=== PATIENT | male | born 1970 | race Hispanic/Latino ===

== ENCOUNTER 2024-01-26 16:06 | Emergency (ER) | payer MEDICAID ==
[~2024-01-26] VITALS: Ht 160 cm; Wt 181.0 kg
[~2024-01-26 16:06] MED LIST: ASPI-1005 PO; ATOR40TA69 PO; CLOP-31 PO; FAMO20TA8 PO; GLIP10TA16 PO; INSLAN SQ; LISI20TA24 PO; SEMA1PEN3 SQ
--- NOTE | 2024-01-26 17:06 | ERN ---
ED Note History of Present Illness Stated Complaint: FEVER Chief Complaint: Fever Time Seen by MD: 16:48 Dictation: PATIENT IS A 53-YEAR-OLD MALE HERE WITH COMPLAINTS OF FLU-LIKE SYMPTOMS TO INCLUDE FEVER CHILLS CLEAR RUNNY NOSE WITH MILD SORE THROAT AND PAINFUL SWALLOWING. HE STATES HE HAS ALSO HAD AN INTERMITTENT COUGH PHLEGM IS CLEAR. DENIES NAUSEA VOMITING DIARRHEA NO LOSS OF TASTE OR SMELL IN HIS VACCINATED FOR COVID. STATES HE HAS ALSO BEEN HAVING URINARY FREQUENCY MORE OFTEN LATELY SAW HIS PRIMARY CARE DOCTOR LAST WEEK AND WAS GIVEN A SHOT FOR A COLD AND THEN TOLD TO COME BACK TO THE GO TO THE EMERGENCY ROOM IF IT GOT WORSE. Allergies: Coded Allergies: No Known Drug Allergies (Unverified Allergy, Unknown, 05/14/22) Home Meds Active Scripts Semaglutide (Ozempic) 1 Mg/0.75 Ml Pen.injctr, 0.25 MG SQ QWEEK for DIABETES MELLITUS/MORBID OBESI for 30 Days, #30 DAYS 6 Refills Inject 0 0.25 mg subcutaneously once weekly for 4 weeks then increase dose to 0.5 mg subcu weekly. Prov:OLI VARGAS Jr., MD 05/16/22 Insulin Glargine,Hum.rec.anlog (Lantus) 100 Units/Ml Inj, 15 UNITS SQ BID@0730,2100 for DIABETES MELLITUS for 30 Days, #30 DAYS 6 Refills Inject 15 units subcutaneously twice daily. Alternate sites of injection. Prov:OLI VARGAS Jr., MD 05/16/22 Famotidine (Famotidine) 20 Mg Tablet, 20 MG PO BID for 30 Days, #60 TAB 1 Refill Take 1 tablet orally twice daily Prov:OLI VARGAS Jr., MD 05/16/22 Clopidogrel Bisulfate (Plavix) 75 Mg Tablet, 75 MG PO DAILY for SECONDARY STROKE PROPHYLAXIS for 90 Days, #90 TAB 1 Refill Take 1 tablet orally daily Prov:OLI VARGAS Jr., MD 05/16/22 Atorvastatin Calcium (LIPITOR) 40 Mg Tablet, 40 MG PO HS for DYSLIPIDEMIA/STROKE PROPHYLAXI for 90 Days, #90 TAB 1 Refill Take 1 tablet orally daily Prov:OLI VARGAS Jr., MD 05/16/22 Aspirin (ASPIRIN 81MG CHEW TAB) 81 Mg Tab.chew, 81 MG PO DAILY for SECONDARY PROPHYLAXIS STROKE for 21 Days, #21 TAB.CHEW 0 Refills Take 1 tablet orally daily for 21 days then stop. Prov:OLI VARGAS Jr., MD 05/16/22 Glipizide (Glipizide) 10 Mg Tablet, 1 TAB PO BID for DIABETES MELLITUS for 30 Days, #60 TAB 1 Refill Take 1 tablet orally twice daily Prov:OLI VARGAS Jr., MD 05/16/22 Lisinopril (Lisinopril) 20 Mg Tablet, 1 TAB PO BID for HYPERTENSION for 30 Days, #60 TAB 1 Refill Take 1 tablet orally twice daily Prov:OLI VARGAS Jr., MD 05/16/22 Past Medical History Past Medical History: Diabetes-Type II, Heart Disease, Hypertension Additional Past Medical Hx: OBESITY Surgical History: Other Surgical History Other: RIGHT KNEE PSYCH History: no pertinent psych hx RN Note Reviewed/Agreed w/PFSH: Yes Review of System Dictation CONSTITUTIONAL: NEGATIVE EXCEPT FOR HPI HEAD/FACE: NEGATIVE EXCEPT FOR HPI EENT: NEGATIVE EXCEPT FOR HPI FEVER CHILLS CLEAR RHINITIS WITH SORE THROAT RESPIRATORY: NEGATIVE EXCEPT FOR HPI INTERMITTENT DRY COUGH GASTROINTESTINAL/ABDOMINAL: NEGATIVE EXCEPT FOR HPI GENITOURINARY: NEGATIVE EXCEPT FOR HPI URINARY FREQUENCY MUSCULOSKELETAL: NEGATIVE EXCEPT FOR HPI INTEGUMENTARY: NEGATIVE EXCEPT FOR HPI NEUROLOGICAL/PSYCH: NEGATIVE EXCEPT FOR HPI HEMATOLOGIC/LYMPHATIC: NEGATIVE EXCEPT FOR HPI ALL SYSTEMS NEGATIVE, EXCEPT NOTED ABOVE. 13 POINT REVIEW OF SYSTEMS ASSESSED AND ALL NEGATIVE EXCEPT FOR ABOVE. Initial Vital Sign VS Vital Signs Date Time Temp Pulse Resp B/P (MAP) Pulse Ox O2 Delivery O2 Flow Rate FiO2 01/26/24 16:07 99.7 98 20 118/54 93 Room Air 01/26/24 17:18 0 21 Physical Exam Dictation VITAL SIGNS REVIEWED GENERAL APPEARANCE: ALERT, ORIENTED X 3, NO ACUTE DISTRESS, WELL DEVELOPED, NOURISHED. MORBID OBESITY HEAD AND FACE: NON-TRAUMATIC. EYES: PERRL, PINK CONJUNCTIVAS, EYELID NO TRAUMA, ANTERIOR CHAMBER WITH ARCUS SENILIS. EARS: PINNAS INTACT AND NO SIGNS OF TRAUMA OR ERYTHEMA EAR CANALS CLEAR AND NO DISCHARGE TM NO ERYTHEMA NOSE: CLEAR DISCHARGE, NO BLEEDING. OROPHARYNX: MOUTH NORMAL, TONGUE PINK, PHARYNX CLEAR, MILD PHARYNGEAL ERYTHEMA, TONSILS NO EXUDATES, NO ABSCESSES NOTE D, MUCOUS MEMBRANE MOIST UVULA MIDLINE VOICE IS CLEAR NO SOME TONSILLAR LYMPHADENOPATHY. NECK: SUPPLE, NON-TENDER, NO THYROMEGALY, NO MASSES, NO JVD, NO BRUITS BREAST:DEFERRED CHEST:NO TENDERNESS, NO CREPITUS, NO PARADOXICAL MOVEMENT, NO RETRACTIONS LUNGS:CLEAR, WELL-VENTILATED, SYMMETRIC, NO RALES, NO WHEEZING, NO RHONCHI, NO STRIDOR, GOOD BREATH SOUNDS BILATERALLY HEART: REGULAR RATE, REGULAR RHYTHM, NO MURMUR, NO GALLOPS VASCULAR: NO PERIPHERAL EDEMA, ABDOMEN: SOFT, POSITIVE BOWEL SOUNDS, NONDISTENDED, NO GUARDING, NONTENDER, NO REBOUND, NO MASSES NO HEPATOMEGALY, NO SPLENOMEGALY, NO GUEVARA'S SIGN, NO HERNIAS. RECTAL: DEFERRED GENITAL: DEFERRED NEUROLOGICAL: NORMAL SPEECH, MOTOR FUNCTION INTACT, SENSORY FUNCTION INTACT MUSCULOSKELETAL: NECK NONTENDER, FULL RANGE OF MOTION, BACK NONTENDER, FULL RANGE OF MOTION, EXTREMITIES: NONTENDER, FULL RANGE OF MOTION SKIN: COLOR PINK, DRY, NO TURGOR, NO RASH, NO LACERATIONS, NO ABRASIONS, NO CONTUSIONS. LYMPHATIC: DEFERRED Results (Laboratory/Radiology) Laboratory/Radiology Laboratory Tests Test 01/26/24 17:15 01/26/24 17:25 Influenza Type A Antigen Negative For Type A Influenza Type B Antigen Negative For Type B SARS-CoV-2, RNA, NAAT NEGATIVE SARS CoV-2 Group A Streptococcus Rapid negative (NEGATIVE) Urine Color YELLOW (YELLOW) Urine Appearance CLOUDY (CLEAR) H Urine pH 5.5 (5.0-8.0) Urine Specific Garretson 1.018 (1.001-1.031) Urine Protein 30 mg/dL (NEGATIVE) H Urine Glucose (UA) 500 mg/dL (NEGATIVE) H Urine Ketones NEGATIVE mg/dL (NEGATIVE) Urine Occult Blood NEGATIVE (NEGATIVE) Urine Nitrate NEGATIVE (NEGATIVE) Urine Bilirubin NEGATIVE mg/dL (NEGATIVE) Urine Urobilinogen 0.2 mg/dL (0.2-1.0) Urine Leukocyte Esterase NEGATIVE Edy/uL Urine RBC 2-5 /HPF (0-1) H Urine WBC 2-5 /HPF (0-1) H Urine Squamous Epithelial Cells RARE /HPF (0-2) Urine Bacteria RARE /HPF (None Seen) Urine Hyaline Casts 11-25 /LPF (0-1 /LPF) H Urine Other Casts 1 /LPF (None Seen) Urine Yeast RARE /HPF (None Seen) TECHNIQUE: 3 views were obtained. Chest x-ray negative increased bronchial markings noted Labs Reviewed?: Yes ED Course ED Course Orders Procedure Category Date Status Time Covid Rna Naat LAB 01/26/24 Complete 16:46 Influenza Type A & B, LAB 01/26/24 Complete Rapid 16:46 Rapid (Group A Strep) LAB 01/26/24 Complete 16:46 Urinalysis Profile LAB 01/26/24 Complete 17:03 Chest 1vw RAD 01/26/24 Resulted 18:21 Ceftriaxone 1g Vial PHA 01/26/24 Complete (Rocephine 1g Inj) 19:00 Levofloxacin 500mg PHA 01/26/24 In Process Tab (Levaquin 500mg T 19:00 Current Medications Medications (Trade) Dose Ordered Sig/Don Route PRN Reason Start Time Stop Time Status Last Admin Dose Admin Ceftriaxone Sodium (ROCEphine 1G INJ) 1 gm ONCE ONCE IM 01/26/24 19:00 01/26/24 19:01 DC 01/26/24 19:14 Levofloxacin (LEvaquIN 500MG TAB) 500 mg ONCE PO 01/26/24 19:00 02/05/24 18:59 01/26/24 19:14 Vital Signs Date Time Temp Pulse Resp B/P (MAP) Pulse Ox O2 Delivery O2 Flow Rate FiO2 01/26/24 17:18 99.7 98 20 118/54 93 Room Air* 0 21 01/26/24 16:07 99.7 98 20 118/54 93 Room Air Patient will be treated for bacterial bronchitis with Rocephin, given Zithromax for five days 500 mg and albuterol to see his primary care doctor. Medical Decision Making MDM Medical discharge making based on swabs for flu COVID and strep and chest x-ray. All negative Patient has low-grade temp with the increased bronchial markings and we will treat for bacterial bronchitis. Discharged home with Zithromax 500 daily for five days now albuterol to see his doctor DX & DISP Disposition: Discharge Departure Impression: Primary Impression: Acute bacterial bronchitis Additional Impressions: Cough, Fever Condition: Stable Scripts Azithromycin (Zithromax Tri-Albert) 500 Mg Tablet 500 MG PO DAILY for 5 Days, #5 TAB One tablet p.o. daily for five days Prov: JYOTI BASHIR BEARINGIZER 01/26/24 Albuterol Sulfate (Ventolin Hfa/Proventil Hfa/Proair Hfa) 90 Mcg Puff 2 PUFF IH Q4H for WHEEZING, #1 INHALER 0 Refills Prov: JYOTI BASHIR NP 01/26/24 Additional Instructions: Follow-up with primary care provider in 1 to 2 days. Take medications as directed here in the emergency room. Okay to continue home medications unless otherwise discussed during your visit in the emergency room today. Return to your nearest emergency room if symptoms worsen or if there is no improvement. Call 911 if you need immediate assistance. Take Tylenol or Motrin [id number] as needed and if no contraindications are present. Increase oral hydration. A wound culture or urine culture was ordered here in the emergency room department please follow-up with primary care provider and advise them to get repeat ports from our facility. If you had any Nacho wrap/splints that were applied here, please do not remove them until you see your primary care or specialty. Take azithromycin as directed daily for the next five days. Use albuterol inhaler every 4 hours while awake for the next three days. Increase your water intake and see your primary care doctor tomorrow Referrals: SELF,REFERRAL (PCP) Time of Disposition: 19:24 I have reviewed the case, and I agree with, Diagnosis and Plan JYOTI BASHIR NP Jan 26, 2024 17:06
[2024-01-26 17:34] LABS: RAPID GROUP A STREP negative (NEGATIVE)
[2024-01-26 17:36] LABS: ADD UA MICROSCOPIC YES; APPEARANCE,URINE CLOUDY (CLEAR); BILIRUBIN,URINE NEGATIVE (NEGATIVE); COLOR,URINE YELLOW (YELLOW); GLUCOSE, URINE (UA) 500 mg/dL (NEGATIVE); KETONES,URINE NEGATIVE (NEGATIVE); LEUKOCYTE ESTERASE ,URINE NEGATIVE Leu/uL (NEGATIVE); NITRATE,URINE NEGATIVE (NEGATIVE); OCCULT BLOOD,URINE NEGATIVE (NEGATIVE); PH,URINE 5.5 (5.0-8.0); PROTEIN,URINE 30 mg/dL (NEGATIVE); UROBILINOGEN,URINE 0.2 mg/dL (0.2-1.0)
[2024-01-26 17:38] LABS: BACTERIA,URINE RARE /HPF (None Seen); MUCUS,URINE RARE LPF (None Seen); OTHER CASTS, URINE 1 /LPF (None Seen); SQUAMOUS EPITHELIAL CELL,UR RARE /HPF (0-2); YEAST,URINE BUDDING RARE /HPF (None Seen)
[2024-01-26 17:38] LABS: SARS-CoV-2, RNA, NAAT NEGATIVE SARS CoV-2 (NEGATIVE)
[2024-01-26 17:44] LABS: INFLUENZA TYPE A Negative For Type A (NEGATIVE); INFLUENZA TYPE B Negative For Type B (NEGATIVE)
--- NOTE | 2024-01-26 18:59 | HMCIMG ---
CHEST 1VW REASON: NONPRODUCTIVE COUGH ONE WEEK LOW-GRADE FEVER COMPARISON: 05/14/2022 FINDINGS: Single view of the chest was obtained. Lungs are clear. Heart size is normal. There is no pulmonary vascular congestion. Mediastinum and bony thorax appear unremarkable. IMPRESSION: 1. Normal single view chest x-ray.
[2024-01-26] MEDS: levoFLOXacin 500 MG TABLET PO SCH (19:14)
[2024-01-26] MEDS: cefTRIAXone 1G VIAL IM ONE (19:14)
[2024-01-26] MEDS ORDERED: ALBUHFA IH (19:26)
[2024-01-26] MEDS ORDERED: AZIT500T2 PO (19:26)
--- NOTE | 2024-01-26 19:31 | NUR ---
PT USED WHEELCHAIR IN ER, HE STATED HE COULD WALK BUT SAID HE WAS TO WEAK TO WALK UNASSISTED, PT ABLE TO STAND WHEN ASKED
[2024-01-26 19:40] VITALS: BP 121/67; PULSE 89; RESP 20; TEMP 98.4; O2SAT 96
== END 2024-01-26 19:41 | disposition home or self-care (01) ==
LOC: EDH 16:06
DX: J20.8 Acute bronchitis due to other specified organisms (principal); B96.89 Other specified bacterial agents as the cause of diseases classified elsewhere; R05.9 Cough, unspecified; R50.9 Fever, unspecified; E11.9 Type 2 diabetes mellitus without complications; I10 Essential (primary) hypertension; E66.9 Obesity, unspecified; Z79.84 Long term (current) use of oral hypoglycemic drugs; Z20.822 Contact with and (suspected) exposure to COVID-19; Z79.4 Long term (current) use of insulin; Z79.899 Other long term (current) drug therapy
CPT/HCPCS: 99284; 71045; 87635; 87880; 87804 ×2; 81001; 96372; J0696